=== PATIENT | male | born 1955 | race Caucasian/White ===

== ENCOUNTER → 2022-01-06 06:24 | Outpatient (CLI) | payer BC, SELFPAY ==
[2022-01-05 17:35] LABS: Adenovirus,PCR Not Detected (NotDetected); Bordetella Pertussis Not Detected (NotDetected); Chlamydophila Pneumoniae, PCR Not Detected (NotDetected); Coronavirus 19, PCR Not Detected (NotDetected); Coronavirus 229E Not Detected (NotDetected); Coronavirus NL63 Not Detected (NotDetected); Coronavirus OC43 Not Detected (NotDetected); Coronovirus HKU1,PCR Not Detected (NotDetected); Human Metapneumovirus Not Detected (NotDetected); Influenza A, PCR Not Detected (NotDetected); Influenza AH1, 2009 Not Detected (NotDetected); Influenza AH1, PCR Not Detected (NotDetected); Influenza AH3,PCR Not Detected (NotDetected); Influenza B, PCR Not Detected (NotDetected); Mycoplasma Pneumoniae, PCR Not Detected (NotDetected); Parainfluenza 1, PCR Not Detected (NotDetected); Parainfluenza 2, PCR Not Detected (NotDetected); Parainfluenza 3, PCR Not Detected (NotDetected); Parainfluenza 4, PCR Not Detected (NotDetected); Respiratory Syncytial Virus Not Detected (NotDetected); Rhinovirus/Enterovirus Not Detected (NotDetected)
[2022-01-05 17:49] LABS: Basophils # 0.1 K/mm3 (0-0.2); Basophils % 0.9 % (0.1-2.0); Eosinophils # 0.1 K/mm3 (0.0-0.4); Eosinophils % 0.9 % (0.1-12.0); Hematocrit 49.4 % (42.0-52.0); Hemoglobin 16.5 g/dL (14.1-18.0); Lymphocytes # 1.1 K/mm3 (0.7-4.5); Lymphocytes % 13.4 % (10-50); Mean Corpuscular HGB Conc 33.3 g/dL (31.8-35.4); Mean Corpuscular Hemoglobin 31.2 pg (27.0-31.2); Mean Corpuscular Volume 93.6 fl (80-94); Mean Platelet Volume 9.9 fl (7.4-10.4); Monocytes # 0.5 K/mm3 (0.1-1.0); Monocytes % 6.6 % (1.7-9.3); Neutrophils # 6.1 K/mm3 (1.8-7.8); Neutrophils % 78.2 % (37.0-80.0); Platelet Count 206 K/mm3 (142-424); Red Blood Count 5.28 M/mm3 (4.60-6.20); Red Cell Distribution Width 13.6 % (11.5-17.5); White Blood Count 7.8 K/mm3 (4.8-10.8)
[2022-01-05 17:50] LABS: Alanine Aminotransferase 29 U/L (12-78); Albumin Level 4.7 g/dl (3.5-5.0); Albumin/Globulin Ratio 1.7 (1.1-1.8); Alkaline Phosphatase 76 U/L (38-126); Anion Gap 12.5 mEq/L (5-15); Aspartate Amino Transferase 34 U/L (17-59); Bilirubin,Total 0.6 mg/dl (0.2-1.3); Blood Urea Nitrogen 12 mg/dl (9-20); Calcium 9.2 mg/dl (8.4-10.2); Carbon Dioxide 27 mmol/L (22.0-30.0); Chloride 104 mmol/L (98-107); Estimated Glomerular Filt Rate 112 ml/min (>60); GFR (African American) 136 ML/MIN (>60); Globulin 2.8 g/dL (1.3-3.2); Glucose 123 mg/dl (74-100); Potassium 3.5 mmoL/L (3.5-5.1); Sodium 140 mmol/L (136-145); Total Protein,Serum 7.5 g/dl (6.3-8.2)
== END ==
PROVIDERS: PCP Nurse Practitioner; Visit Provider Nurse Practitioner
DX: Z20.822 Contact with and (suspected) exposure to COVID-19 (principal); R42 Dizziness and giddiness; J18.9 Pneumonia, unspecified organism; J06.9 Acute upper respiratory infection, unspecified; R05.9 Cough, unspecified
CPT/HCPCS: 80053; 85025; 87581; 87632; 87798; C9803; U0003; U0005

== ENCOUNTER → 2022-04-27 12:16 | Outpatient (CLI) | payer BC, SELFPAY | PROVIDERS: PCP Nurse Practitioner; Visit Provider Nurse Practitioner | DX: L02.415 Cutaneous abscess of right lower limb (principal); L03.115 Cellulitis of right lower limb; B95.7 Other staphylococcus as the cause of diseases classified elsewhere | CPT/HCPCS: 87070; 87077; 87186; 87205 ==

== ENCOUNTER → 2022-08-25 11:00 | Outpatient (CLI) | payer SELFPAY ==
[2022-08-25 18:28] LABS: Adenovirus,PCR Not Detected (NotDetected); Bordetella Pertussis Not Detected (NotDetected); Chlamydophila Pneumoniae, PCR Not Detected (NotDetected); Coronavirus 19, PCR Not Detected (NotDetected); Coronavirus 229E Not Detected (NotDetected); Coronavirus NL63 Not Detected (NotDetected); Coronavirus OC43 Not Detected (NotDetected); Coronovirus HKU1,PCR Not Detected (NotDetected); Human Metapneumovirus Not Detected (NotDetected); Influenza A, PCR Not Detected (NotDetected); Influenza AH1, 2009 Not Detected (NotDetected); Influenza AH1, PCR Not Detected (NotDetected); Influenza AH3,PCR Not Detected (NotDetected); Influenza B, PCR Not Detected (NotDetected); Mycoplasma Pneumoniae, PCR Not Detected (NotDetected); Parainfluenza 1, PCR Not Detected (NotDetected); Parainfluenza 2, PCR Not Detected (NotDetected); Parainfluenza 3, PCR Not Detected (NotDetected); Parainfluenza 4, PCR Not Detected (NotDetected); Respiratory Syncytial Virus Not Detected (NotDetected)
[2022-08-25 19:05] LABS: Basophils % 0.6 % (0.1-2.0); Eosinophils # 0.1 K/mm3 (0.0-0.4); Eosinophils % 1.5 % (0.1-12.0); Hematocrit 46.5 % (42.0-52.0); Hemoglobin 15.2 g/dL (14.1-18.0); Lymphocytes # 1.1 K/mm3 (0.7-4.5); Lymphocytes % 15.2 % (10-50); Mean Corpuscular HGB Conc 32.8 g/dL (31.8-35.4); Mean Corpuscular Hemoglobin 30.1 pg (27.0-31.2); Mean Corpuscular Volume 91.8 fl (80-94); Mean Platelet Volume 9.2 fl (7.4-10.4); Monocytes # 0.5 K/mm3 (0.1-1.0); Monocytes % 6.6 % (1.7-9.3); Neutrophils # 5.3 K/mm3 (1.8-7.8); Neutrophils % 76.1 % (37.0-80.0); Platelet Count 235 K/mm3 (142-424); Red Blood Count 5.06 M/mm3 (4.60-6.20); Red Cell Distribution Width 13.3 % (11.5-17.5)
[2022-08-26 01:20] LABS: Rhinovirus/Enterovirus Detected (NotDetected)
== END ==
PROVIDERS: PCP Nurse Practitioner; Visit Provider Nurse Practitioner
DX: J06.9 Acute upper respiratory infection, unspecified (principal); J18.9 Pneumonia, unspecified organism; B34.1 Enterovirus infection, unspecified
CPT/HCPCS: 85025; 87581; 87632; 87798; C9803; U0003; U0005

== ENCOUNTER → 2023-06-01 09:22 | Outpatient (CLI) | payer BC, SELFPAY ==
[2023-06-01 18:17] LABS: Coronavirus 19, PCR Not Detected (NotDetected); Influenza A, PCR Not Detected (NotDetected); Influenza B, PCR Not Detected (NotDetected)
== END ==
LOC: LAB.DROPOF 06-02 09:22
PROVIDERS: PCP Nurse Practitioner; Visit Provider Nurse Practitioner
DX: J06.9 Acute upper respiratory infection, unspecified (principal); R68.89 Other general symptoms and signs; R09.89 Other specified symptoms and signs involving the circulatory and respiratory systems
CPT/HCPCS: 87636

== ENCOUNTER 2024-01-24 01:01 | Emergency (ER) | payer BC, SELFPAY ==
[2024-01-24 01:01] VITALS: BP 147/70; PULSE 84; RESP 16; TEMP 36.7; O2SAT 96; BMI 19.9
--- NOTE | 2024-01-24 01:01 | XR_ITS ---
PROCEDURE INFORMATION: Exam: XR Chest Exam date and time: 01/24/2024 1:09 AM Age: 68 years old Clinical indication: Chest wall pain and right-sided; Additional info: Right lower rib pain TECHNIQUE: Imaging protocol: Radiologic exam of the chest. Views: 1 view. Total images: 1 COMPARISON: No relevant prior studies available. FINDINGS: Lungs: Mild bibasilar atelectasis versus scarring. No concerning infiltrate, airspace consolidation or vascular congestion. No pulmonary edema. Pleural spaces: Unremarkable. No pleural effusion. No pneumothorax. Heart/Mediastinum: Unremarkable. No cardiomegaly. No mediastinal widening or hilar enlargement. Bones/joints: No discrete rib fractures. Mild degenerative changes thoracic spine. Mild degenerative changes bilateral AC joints. IMPRESSION: 1. No radiographically acute cardiopulmonary process. 2. No discrete rib fractures. Follow-up with dedicated radiographs as directed. 3. Mild bibasilar atelectasis versus scarring.
--- NOTE | 2024-01-24 01:03 | ED_ITS ---
Discharge Plan Disposition Patient Disposition: Home, Self-Care Prescriptions Prescriptions: New methocarbamol 500 mg tablet 500 mg PO Q6H PRN (Reason: pain) Qty: 30 0RF lidocaine 5 % adhesive patch,medicated 1 patch topical DAILY PRN (Reason: pain) Qty: 30 0RF Rx Instructions: leave on most painful area for up to 12 hrs No Action prednisone 20 mg tablet 20 mg PO .COMPLEX Qty: 15 0RF Rx Instructions: 20 mg orally BID x 5 days then daily x 5 days levofloxacin 500 mg tablet 500 mg PO Q24H Qty: 10 0RF dextromethorphan-guaifenesin 60-1,200 mg tablet extended release 12 hr 1 tab PO Q12H Qty: 60 0RF albuterol sulfate 90 mcg/actuation HFA aerosol inhaler 2 puff inhalation Q4-6H PRN (Reason: shortness of breath or wheezing) Qty: 8.5 0RF meloxicam 15 mg tablet See Rx Instructions .ROUTE .COMPLEX Qty: 90 5RF Dose Instruction: Take 1 Tablet by mouth once daily. Rx Instructions: Take 1 Tablet by mouth once daily. potassium chloride 10 mEq tablet extended release See Rx Instructions .ROUTE .COMPLEX Qty: 90 5RF Dose Instruction: Take 1 Tablet by mouth once daily. Rx Instructions: Take 1 Tablet by mouth once daily. aspirin 81 mg tablet,chewable See Rx Instructions .ROUTE .COMPLEX Qty: 90 5RF Dose Instruction: Take 1 Tablet by mouth once daily. Rx Instructions: Take 1 Tablet by mouth once daily. lisinopril-hydrochlorothiazide 20-12.5 mg tablet See Rx Instructions .ROUTE .COMPLEX Qty: 180 5RF Dose Instruction: Take 2 Tablets by mouth once daily. Rx Instructions: Take 2 Tablets by mouth once daily. amlodipine 10 mg tablet See Rx Instructions .ROUTE .COMPLEX Qty: 90 5RF Dose Instruction: Take 1 Tablet by mouth once daily. Rx Instructions: Take 1 Tablet by mouth once daily. Activity Restrictions/Add. Instructions Additional Instructions/Restrictions: Please follow-up with your primary care provider. Please return to the emergency department if you develop any new or worsening symptoms or become concerned for your health. Please take Tylenol, Robaxin and lidocaine patches as needed for pain. Clinical Impressions Clinical Impression: Closed rib fracture, Rib pain on right side, Hypokalemia Stand Alone Forms Stand Alone Forms: Work/School Release Instructions Patient Instructions: DI for Acute Abdominal Pain Print Language Print Language: [place] Discharge ED Provider: Marlo Vigil General Adult HPI General Chief complaint: Abdominal Pain Stated complaint: right rib pain Time Seen by Provider: 01/24/24 01:03 History of Present Illness HPI narrative: 68-year-old male presents for right-sided pain. He reports that he has been lifting more things at work than normal and around noon today he started having some pain. He reports that his right-sided, at the rib margin, worse with lifting, worse with twisting. He denies any central chest pain, left-sided pain, radiation to jaw or arm. Denies any significant cardiac history besides hypertension. Reports he took some aspirin around 8 PM. Related Data Previous Rx's ?Medication ?Instructions ?Recorded amlodipine 10 mg tablet See Rx Instructions .Route 02/07/23 .COMPLEX #90 tabs aspirin 81 mg chewable tablet See Rx Instructions .Route 02/07/23 .COMPLEX #90 tabs lisinopril 20 See Rx Instructions .Route 02/07/23 mg-hydrochlorothiazide 12.5 mg .COMPLEX #180 tabs tablet meloxicam 15 mg tablet See Rx Instructions .Route 02/07/23 .COMPLEX #90 tabs potassium chloride 10 mEq See Rx Instructions .Route 02/07/23 tablet,extended release .COMPLEX #90 tabs albuterol sulfate 90 mcg/actuation 2 puff inhalation Q4-6H PRN 08/28/23 aerosol inhaler shortness of breath or wheezing #8.5 grams dextromethorphan-guaifenesin ER 60 1 tab PO Q12H #60 tabs 08/28/23 mg-1,200 mg tab,extend release,12hr levofloxacin 500 mg tablet 500 mg PO Q24H #10 tabs 08/28/23 prednisone 20 mg tablet 20 mg PO .COMPLEX #15 tabs 08/28/23 lidocaine 5 % topical patch 1 patch topical DAILY PRN pain #30 01/24/24 ea methocarbamol 500 mg tablet 500 mg PO Q6H PRN pain #30 tabs 01/24/24 Allergies Allergy/AdvReac Type Severity Reaction Status Date / Time INGREDIENT: NO KNOWN - NO Allergy Unknown Uncoded 08/28/23 13:54 KNOWN DRUG ALLERGY [facility] Disclaimer: The information contained in this section may have been updated after the patient was seen, as this information can be updated by other users. Medical History Pneumonia Hypertension Social History Smoking Status: Current some day smoker alcohol intake: never current occupational status: employed Travel in the last 8 weeks: None housing: house ROS Obtained: Yes All systems reviewed & no additional complaints except as documented Physical Exam General General appearance: alert and in no apparent distress Head Head exam: atraumatic and normocephalic Eye Eye exam: Present normal appearance, PERRL and EOMI ENT ENT exam: Present normal oropharynx and normal external ear exam Neck Neck exam: Present normal inspection and full ROM Chest Chest inspection: Present normal inspection, symmetric chest wall rise and tenderness (Right lateral lower rib margin) Respiratory Respiratory exam: Present normal lung sounds bilaterally; Absent respiratory distress Cardiovascular Cardiovascular exam: Present regular rate and normal rhythm Abdominal Exam Abdominal exam: Present soft and tenderness (Right upper quadrant, epigastric); Absent distention or guarding Extremities Exam Extremities exam: Present normal inspection; Absent edema or joint swelling Back Exam Back exam: Present normal inspection; Absent tenderness Neurological Exam Neurological exam: Present alert and oriented X3; Absent motor sensory deficit Psychiatric Psychiatric exam: Present normal affect and normal mood Skin Skin exam: Present warm, dry and normal color Lymphatic Lymphatic Findings: no adenopathy Medical Decision Making Medical Records Medical records reviewed: Yes I reviewed the patient's medical records. [place] Inquiry Pt receiving controlled substance: No [place] was queried for this patient: No Vital Signs: 01/24/24 01:01 01/24/24 01:06 01/24/24 01:10 Temperature 98.1 F Temperature Source Oral Pulse Rate 84 Pulse Rate [Right] 84 Respiratory Rate 16 Blood Pressure 132/71 Blood Pressure [Right Arm] 147/70 H Blood Pressure Mean 101 Blood Pressure Mean [Right Arm] 95 Blood Pressure Source Blood Pressure Source [Right Arm] Automatic Cuff Blood Pressure Position Blood Pressure Position [Right Arm] Sitting 02 Sat by Pulse Oximetry 96 Oxygen Delivery Method Room Air 01/24/24 01:20 01/24/24 02:38 Temperature 98.2 F Temperature Source Oral Pulse Rate 79 Pulse Rate [Right] Respiratory Rate 18 Blood Pressure 139/75 138/70 Blood Pressure [Right Arm] Blood Pressure Mean 103 Blood Pressure Mean [Right Arm] Blood Pressure Source Automatic Cuff Blood Pressure Source [Right Arm] Blood Pressure Position Sitting Blood Pressure Position [Right Arm] 02 Sat by Pulse Oximetry Oxygen Delivery Method Room Air Lab Data Lab results reviewed: Yes I reviewed the patient's lab results. Lab Results 01/24/24 01:03: WBC 10.7, RBC 4.65, Hgb 14.3, Hct 43.8, MCV 94.2 H, MCH 30.7, MCHC 32.6, RDW 14.2, Plt Count 170, MPV 8.0, Neut % (Auto) 73.8, Lymph % (Auto) 16.8, [place] % (Auto) 8.4, Eos % (Auto) 0.5, Baso % (Auto) 0.5, Neut # (Auto) 7.9 H, Lymph # (Auto) 1.8, [place] # (Auto) 0.9, Eos # (Auto) 0.1, Baso # (Auto) 0.1, D-Dimer 0.41, Sodium 137, Potassium 3.0 L, Chloride 103, Carbon Dioxide 27, Anion Gap 10.0, BUN 14, Creatinine 0.80, Estimated Creat Clear 69, Estimated GFR 96, Est GFR ( Amer) 116, Glucose 155 H, Calcium 8.3 L, Total Bilirubin 0.9, AST 27, ALT 25, Alkaline Phosphatase 67, Troponin I < 0.01, Total Protein 6.9, Albumin 4.0, Globulin 2.9, Albumin/Globulin Ratio 1.4, Lipase 74 01/24/24 01:03 01/24/24 01:03 Orders (Tests/Meds): ED MEDICATIONS Discontinued Medications Generic Name Dose Route Start Last Admin Trade Name Freq PRN Reason Stop Dose Admin Acetaminophen 1,000 mg 01/24/24 01:01 01/24/24 01:26 Acetaminophen 500mg Tab PO 01/24/24 01:02 1,000 mg ONCE ONE Administration Iopamidol 75 ml 01/24/24 02:27 01/24/24 02:28 Iopamidol-370 (76%);100ml Bottle IV 01/24/24 02:28 75 ml ONCE ONE Administration Ketorolac Tromethamine 30 mg 01/24/24 01:01 01/24/24 01:25 Ketorolac 30mg/Ml Vial IV 01/24/24 01:02 30 mg ONCE ONE Administration Lidocaine 1 each 01/24/24 01:01 01/24/24 01:25 Lidocaine 5% Transdermal Patch TP 01/24/24 01:02 1 each ONCE ONE Administration Methocarbamol 500 mg 01/24/24 01:01 01/24/24 01:25 Methocarbamol 500mg Tablet PO 01/24/24 01:02 500 mg ONCE ONE Administration Potassium Chloride 40 meq 01/24/24 01:22 01/24/24 01:25 Potassium Chloride 20meq Tab PO 01/24/24 01:23 40 meq ONCE ONE Administration Sodium Chloride 10 ml 01/24/24 02:27 01/24/24 02:28 Sodium Chloride 0.9% 10ml Syr (Rad Only) IV 02/23/24 02:26 10 ml NEEDED PRN Administration Maintain IV Site ORDERS Category Date Time Status CT abdomen pelvis w con Stat Cat Scan 01/24/24 02:03 Completed CXR --portable [XR chest portable] Stat Exams 01/24/24 01:01 Completed CBC w/Auto Diff [Complete Blood Count Auto Diff] Stat Lab 01/24/24 01:03 Completed CMP [Comprehensive Metabolic Panel] Stat Lab 01/24/24 01:03 Completed D-Dimer Stat Lab 01/24/24 01:03 Completed Lipase Stat Lab 01/24/24 01:03 Completed Trop I [Troponin I] Stat Lab 01/24/24 01:03 Completed ECG Data Tracing #1: I reviewed this ECG and interpreted as documented below: Sinus rhythm, rate of 72, no significant ST changes, no T wave changes ECG initial impression date: 01/24/24 ECG initial impression time: 01:10 HEART Score History (anamnesis): Slightly suspicious ECG: Normal Age: >65 years Risk factors: 1-2 risk factors Troponin: </= normal limit HEART Score: 3 Medical Decision Narrative: 68-year-old male history of hypertension presents for right lower rib pain, positional, worse with breathing and moving, mild right upper quadrant/epigastric tender. History was obtained via interactive discussion with patient, EMS, chart review. On arrival, patient is [afebrile, hemodynamically stable, satting appropriately, alert, oriented x4, GCS 15], moving all extremities spontaneously. Full physical exam performed and significant for clear lungs bilaterally, mild right upper quadrant/epigastric/right inferior anterior lateral rib margin tenderness Differential includes but is not limited to ACS, PE, rib fracture, pneumothorax, musculoskeletal chest/abdominal pain, cholecystitis, pancreatitis, pneumonia,. Patient was given aspirin prior to arrival. He was given Tylenol, Toradol, Robaxin, lidocaine patch for symptomatic management and correction of underlying abnormalities. Workup initiated including CBC CMP troponin D-dimer chest x-ray EKG lipase bedside ultrasound. Bedside ultrasound of the right upper quadrant was performed which showed normal-appearing gallbladder without significant gallbladder wall thickening or pericholecystic fluid or stones. Bedside ultrasound of the lung shows lung sliding bilaterally without pneumothorax. On re-evaluation, patient [remains afebrile, HD stable.] Laboratory workup independently interpreted by me and significant for mild hypokalemia that was repleted orally. D-dimer negative. Initial troponin undetectable. Normal lipase and LFTs. Imaging independently interpreted by me and significant for chest x-ray without focal opacity or pneumothorax. See radiology read for full review of final results. Repeat troponin was considered, but deemed unnecessary due to history and exam seems extremely consistent with musculoskeletal abdominal strain. Patient did not have significant improvement in pain after interventions and remains focally tender in the right upper quadrant. Given this, despite negative bedside ultrasound, we will assess with CT abdomen pelvis. CT imaging was interpreted by me and shows possible anterior right sixth and seventh rib fracture some underlying pleural thickening which could be a small hematoma. No pneumothorax. No intra-abdominal pathology noted. These findings were communicated to patient. He was encouraged to follow-up with PCP for further assessment. He was given incentive spirometer. He was given muscle relaxers and lidocaine patches and instructions regarding symptomatic care. Procedures Risk/Benefits of Procedure(s) Were Explained: Yes Limited Ultrasound Indication:: Limited RUQ ultrasound Indication: Abdominal pain, right upper quadrant Identified structures: -Gallbladder -Gallbladder wall -Liver Findings: Sonographic Stoner sign: Absent Gallstones: Absent Sludge: Absent Pericholecystic fluid: Absent Maximal GB wall thickness (mm): [normal is </= 3mm] Grossly normal Common bile duct width (mm): [normal is </= 6mm] Unable to visualize Gallbladder width (cm): [normal is < 4cm] Grossly normal Gallbladder length (cm): [normal is < 10cm] Grossly normal Impression: Normal gallbladder Images were saved to permanent archive The study was technically adequate CPT 82634-12 This study was performed by nd, and I personally interpreted all images/videos. Views:: Limited lung ultrasound A focused ultrasound exam of the pleural spaces was performed to evaluate for pneumothorax, pulmonary edema, pleural effusion and/or consolidation. The ultrasound was performed with the following indications, as noted in the H&P: Rib pain with inspiration Identified structures: Bilateral thoracic cavities were examined. Findings: Lung sliding: -Present bilaterally B-lines: -Absent bilaterally Pleural effusion: -Absent bilaterally Impression: -No evidence of pneumothorax Images were saved to permanent archive The study was technically adequate CPT 35659-58 This study was performed by nd, and I personally interpreted all images/videos. Critical Care Critical Care Time Critical Care Time: No
[2024-01-24 01:06] VITALS: PULSE 84
[2024-01-24 01:10] VITALS: BP 132/71
--- NOTE | 2024-01-24 01:10 | ECG_ITS ---
APPROVED REPORT Exam: Resting ECG HR:72 bpm ECG Measurements Heart Rate 72 AXES KS 166 P 62 QRSd 93 QRS 22 QT 371 T 55 QTc 395 Conclusion SINUS RHYTHM WITH OCCASIONAL SUPRAVENTRICULAR PREMATURE COMPLEXES BORDERLINE ECG UNCONFIRMED REPORT Electronically signed by : BLANCA LEGGETT, 01/24/2024 06:55:42
[2024-01-24 01:13] LABS: Basophils # 0.1 K/mm3 (0-0.2); Basophils % 0.5 % (0.1-2.0); Eosinophils # 0.1 K/mm3 (0.0-0.4); Eosinophils % 0.5 % (0.1-12.0); Hematocrit 43.8 % (42.0-52.0); Hemoglobin 14.3 g/dL (14.1-18.0); Lymphocytes # 1.8 K/mm3 (0.7-4.5); Lymphocytes % 16.8 % (10-50); Mean Corpuscular HGB Conc 32.6 g/dL (31.8-35.4); Mean Corpuscular Hemoglobin 30.7 pg (27.0-31.2); Mean Corpuscular Volume 94.2 fl (80-94); Monocytes # 0.9 K/mm3 (0.1-1.0); Monocytes % 8.4 % (1.7-9.3); Neutrophils # 7.9 K/mm3 (1.8-7.8); Neutrophils % 73.8 % (37.0-80.0); Platelet Count 170 K/mm3 (142-424); Red Blood Count 4.65 M/mm3 (4.60-6.20); Red Cell Distribution Width 14.2 % (11.5-17.5); White Blood Count 10.7 K/mm3 (4.8-10.8)
[2024-01-24 01:20] VITALS: BP 139/75
[2024-01-24 01:20] LABS: Alanine Aminotransferase 25 U/L (12-78); Albumin/Globulin Ratio 1.4 (1.1-1.8); Alkaline Phosphatase 67 U/L (38-126); Aspartate Amino Transferase 27 U/L (17-59); Bilirubin,Total 0.9 mg/dl (0.2-1.3); Blood Urea Nitrogen 14 mg/dl (9-20); Calcium 8.3 mg/dl (8.4-10.2); Carbon Dioxide 27 mmol/L (22.0-30.0); Chloride 103 mmol/L (98-107); Creatinine Clearance Estimated 69 mL/min (50-200); Estimated Glomerular Filt Rate 96 ml/min (>60); GFR (African American) 116 ML/MIN (>60); Globulin 2.9 g/dL (1.3-3.2); Glucose 155 mg/dl (74-100); Lipase 74 U/L (23-300); Sodium 137 mmol/L (136-145); Total Protein,Serum 6.9 g/dl (6.3-8.2)
[2024-01-24 01:25] LABS: D-Dimer 0.41 ug/mL (0.0-0.5)
[2024-01-24] MEDS: LIDOCAINE 5% TRANSDERMAL PATCH 1 EACH TP (01:25)
[2024-01-24] MEDS: KETOROLAC 30MG/ML VIAL 30 MG IV (01:25)
[2024-01-24] MEDS: METHOCARBAMOL 500MG TABLET 500 MG PO (01:25)
[2024-01-24] MEDS: POTASSIUM CHLORIDE 20MEQ TAB 40 MEQ PO (01:25)
[2024-01-24] MEDS: ACETAMINOPHEN 500MG TAB 1000 MG PO (01:26)
[2024-01-24 01:34] LABS: Troponin I < 0.01 ng/ml (0.00-0.034)
--- NOTE | 2024-01-24 02:03 | CT_ITS ---
PROCEDURE INFORMATION: Exam: CT Abdomen And Pelvis With Contrast Exam date and time: 01/24/2024 2:24 AM Age: 68 years old Clinical indication: Abdominal pain; Additional info: Ruq pain TECHNIQUE: Imaging protocol: Computed tomography of the abdomen and pelvis with contrast. Total images: 282 Radiation optimization: All CT scans at this facility use at least one of these dose optimization techniques: automated exposure control; mA and/or kV adjustment per patient size (includes targeted exams where dose is matched to clinical indication); or iterative reconstruction. Contrast material: ISOVUE; Contrast volume: 75 ml; Contrast route: IV; COMPARISON: CR XR CHEST PORTABLE 01/24/2024 1:09 AM FINDINGS: Lungs: Bibasilar atelectasis or scarring. Focal pleural thickening/scarring anterior right lung base. Pleural spaces: Trace right pleural effusion. Heart: Borderline cardiomegaly. Liver: Focal fatty infiltration near the falciform ligament. Tiny subcentimeter left hepatic hypodensity is too small to characterize but statistically a cyst. Otherwise, unremarkable liver. Gallbladder and biliary ducts: Contracted gallbladder. No calcified gallstones or biliary ductal dilatation. Pancreas: Normal. No ductal dilation. Spleen: Normal. No splenomegaly. Adrenal glands: Normal. No mass. Kidneys and ureters: No hydronephrosis, nephrolithiasis, or renal mass. Symmetric mild dilatation of the renal pelvises, presumed physiologic. No ureteral stones. Stomach and bowel: Unremarkable stomach and duodenum. No ileus or bowel obstruction. Unremarkable small bowel. Unremarkable colon and rectum with a few incidental scattered diverticulum. Appendix: Normal appendix. Intraperitoneal space: Unremarkable. No free air. No significant fluid collection. Vasculature: Atherosclerotic abdominal aorta without aneurysm. Major abdominal vessels enhance appropriately. Pelvic phleboliths. Lymph nodes: Unremarkable. No enlarged lymph nodes. Urinary bladder: Unremarkable as visualized. Reproductive: Nonenlarged prostate. Bones/joints: Moderate degenerative changes thoracolumbar spine. Very subtle findings concerning for acute nondisplaced fractures of the anterior right 6th and 7th ribs. Please correlate with point tenderness. Soft tissues: Very tiny fat containing umbilical hernia. IMPRESSION: 1. Very subtle findings concerning for acute nondisplaced fractures anterior right 6th and 7th ribs. 2. Focal pleural thickening anterior right lung base may reflect a small hematoma opposite the anterior rib fractures. 3. Trace right pleural effusion. 4. Otherwise, no acute intra-abdominal or pelvic process. 5. Additional chronic and incidental findings.
[2024-01-24] MEDS: SODIUM CHLORIDE 0.9% 10ML SYR (RAD ONLY) 10 ML IV (02:28)
[2024-01-24] MEDS: IOPAMIDOL-370 (76%);100ML BOTTLE 75 ML IV (02:28)
[2024-01-24 02:38] VITALS: BP 138/70; PULSE 79; RESP 18; TEMP 36.8; O2SAT 96
--- NOTE | 2024-01-24 02:47 | PC.NURSE ---
Pt called back from lobby informed of rib fractures, teaching about deep breathing and use of inceptive spiromitry, device given, pt verbalized understanding
== END 2024-01-24 02:39 | disposition home or self-care (01) ==
PROVIDERS: Emergency Provider Emergency Medicine
DX: S22.41XA Multiple fractures of ribs, right side, initial encounter for closed fracture (principal); R07.81 Pleurodynia; E87.6 Hypokalemia; F17.210 Nicotine dependence, cigarettes, uncomplicated; X50.0XXA Overexertion from strenuous movement or load, initial encounter; I10 Essential (primary) hypertension
CPT/HCPCS: 71045; 74177; 80053; 83690; 84484; 85025; 85378; 93005; 96374; 99285; J1885; Q9967

== ENCOUNTER 2024-03-05 11:06 | Outpatient (CLI) | payer BC, SELFPAY ==
[2024-03-05 18:05] LABS: Influenza A, PCR Not Detected (NotDetected); Influenza B, PCR Not Detected (NotDetected)
[2024-03-05 18:36] LABS: Basophils # 0.1 K/mm3 (0-0.2); Basophils % 0.7 % (0.1-2.0); Eosinophils # 0.1 K/mm3 (0.0-0.4); Eosinophils % 1.1 % (0.1-12.0); Hematocrit 47.6 % (42.0-52.0); Hemoglobin 15.6 g/dL (14.1-18.0); Lymphocytes # 1.5 K/mm3 (0.7-4.5); Lymphocytes % 20.4 % (10-50); Mean Corpuscular HGB Conc 32.8 g/dL (31.8-35.4); Mean Corpuscular Hemoglobin 31.3 pg (27.0-31.2); Mean Corpuscular Volume 95.4 fl (80-94); Mean Platelet Volume 8.4 fl (7.4-10.4); Monocytes # 0.8 K/mm3 (0.1-1.0); Monocytes % 10.3 % (1.7-9.3); Neutrophils # 5.1 K/mm3 (1.8-7.8); Neutrophils % 67.5 % (37.0-80.0); Platelet Count 208 K/mm3 (142-424); Red Blood Count 4.99 M/mm3 (4.60-6.20); Red Cell Distribution Width 14.3 % (11.5-17.5); White Blood Count 7.5 K/mm3 (4.8-10.8)
[2024-03-05 18:51] LABS: Microalbumin/Creatinine Ratio 10.1
[2024-03-05 18:58] LABS: Alanine Aminotransferase 29 U/L (12-78); Albumin Level 4.5 g/dl (3.5-5.0); Albumin/Globulin Ratio 1.7 (1.1-1.8); Alkaline Phosphatase 68 U/L (38-126); Anion Gap 10.3 mEq/L (5-15); Aspartate Amino Transferase 32 U/L (17-59); Blood Urea Nitrogen 17 mg/dl (9-20); Calcium 9.1 mg/dl (8.4-10.2); Carbon Dioxide 31 mmol/L (22.0-30.0); Chloride 101 mmol/L (98-107); Cholesterol 196 mg/dl (140-200); Estimated Glomerular Filt Rate 84 ml/min (>60); GFR (African American) 101 ML/MIN (>60); Globulin 2.7 g/dL (1.3-3.2); Glucose 136 mg/dl (74-100); HDL Cholesterol 49 mg/dl (40-60); Potassium 3.3 mmoL/L (3.5-5.1); Sodium 139 mmol/L (136-145); Total Protein,Serum 7.2 g/dl (6.3-8.2); Triglycerides 113 mg/dl (30-150); VLDL Cholesterol 23 mg/dL (0-40)
[2024-03-05 19:08] LABS: Direct LDL Cholesterol 117.61 mg/dL (100-129)
[2024-03-05 19:16] LABS: Creatinine,Urine Random 92 mg/dL (Not Estab.); Hemoglobin A1C 5.4 % (4.0-6.0)
[2024-03-05 19:30] LABS: Prostate Specific Ag Screen 2.2 ng/ml (0.0-4.0); Thyroid Stimulating Hormone 0.89 uIU/mL (0.465-4.68)
[2024-03-06 02:06] LABS: Coronavirus 19, PCR Detected (NotDetected)
== END 2024-03-05 23:59 | disposition home or self-care (01) ==
LOC: LAB.DROPOF 03-06 11:07
PROVIDERS: PCP Nurse Practitioner; Visit Provider Nurse Practitioner
DX: I10 Essential (primary) hypertension (principal); R73.09 Other abnormal glucose; Z12.5 Encounter for screening for malignant neoplasm of prostate; J06.9 Acute upper respiratory infection, unspecified; Z72.0 Tobacco use
CPT/HCPCS: 80050; 80053; 80061; 82043; 82570; 83036; 84443; 85025; 87636; G0103